=== PATIENT | male | born 1945 | race Caucasian/White ===

== ENCOUNTER 2018-04-22 10:43 | Inpatient (IN) | payer MEDICARE, SELFPAY ==
[2018-04-22] VITALS (20 sets, daily range): BP systolic 114–152; BP diastolic 72–102; PULSE 87–110; RESP 21–30; TEMP 36–36.8; O2SAT 87–99; BMI 29.5; BMI 31.6
--- NOTE | 2018-04-22 11:02 | EKG12_ITS ---
Test Reason : SOB Blood Pressure : / mmHG Vent. Rate : 106 BPM Atrial Rate : 106 BPM P-R Int : 190 ms QRS Dur : 100 ms QT Int : 352 ms P-R-T Axes : 048 131 -56 degrees QTc Int : 467 ms Sinus tachycardia Right axis deviation ST & T wave abnormality, consider inferior ischemia ST & T wave abnormality, consider anterior ischemia Abnormal ECG Confirmed by REID ORTEGA MD ([id number]), associate editor LIDIA RICE ([id number] on 04/24/2018 11:14:27 AM Referred By: MIKEY Confirmed By:REID ORTEGA MD
--- NOTE | 2018-04-22 11:09 | ED.VISSUMM ---
- ER Visit Summary Date of Service: 04/22/18 Chief Complaint: Shortness of breath History of Present Illness: The patient is a 72 M presents to the emergency department shortness of breath. The patient denies any significant medical history. He states that he was recently diagnosed with hypertension and started on medications. He states over the past month and a half, has had worsening dyspnea. He admits to increasing leg swelling, orthopnea, and dyspnea on exertion. He states never had this before. He denies any fevers or chills. He denies any cough. He has had no chest pain. He states that he just felt much worse over the past few days and feels like he cannot catch his breath. Physical Examination: Vital signs reviewed General: Well-nourished, well-developed Head: Normocephalic, atraumatic Eyes: Pupils equal and reactive, extraocular muscles intact Neck, supple, no lymphadenopathy Heart: Regular rate and rhythm Respiratory: No distress, rales in bilateral bases Abdomen: Soft, nontender, nondistended, no peritoneal signs Back: Nontender Extremities: Nontender, 2+ edema, no cords Skin: Normal color no rash Neuro: Alert and oriented, no focal or lateralizing deficits Test Results: [] Emergency Department Course and Treatment: The patient presents to the emergency department with exertional dyspnea. He was hypoxic on arrival. He does have bilateral leg edema. Initially, I was concerned for new onset CHF or volume overload. He did have some slight rales on auscultation, but there was no significant change in the bases. EKG was obtained. It does show evidence of right ventricular strain. He has poor R wave progression across the precordium. He also has T wave inversions inferiorly. The chest x-ray was clear. With this, I was significantly concerned for pulmonary embolus. Patient's troponin was indeterminate at 0.066. He also had an elevation of his BNP. Patient underwent CTA of the chest which shows large bilateral pulmonary emboli. There was no saddle pulmonary emboli. However, given the fact that he has evidence of right ventricular strain, indeterminate troponin, is hypoxic and tachycardic I do feel that he is going to require ICU admission. The patient was discussed with Dr. Deal and Dr. Funez. He is started on heparin drip. He will be admitted to the ICU for further workup and evaluation of his bilateral PEs. Treatment Plan: [] Disposition: Admission Impression: 1. Submassive bilateral pulmonary embolus 2. Hypoxia requiring supplemental oxygen 3. Tachycardia 4. Right ventricular strain This note was generated with [employer] dictation software. It may contain incorrect words, spelling, and punctuation that were not noted in review of the chart prior to signing ED Disposition - Plan for ED Patient: Chief Complaint: Shortness of Breath
--- NOTE | 2018-04-22 11:10 | RAD_ITS ---
STUDY: X-RAY CHEST REASON FOR EXAM: Male, 72 years old. Shortness of breath. Difficulty breathing. TECHNIQUE: Single AP portable view of the chest. COMPARISON: None. FINDINGS: EKG electrodes are seen. The lungs are clear and expanded. There is no demonstrated pleural abnormality. There is borderline cardiomegaly. Normal mediastinum and jud. Normal visualized pulmonary arteries. Normal visualized aortic arch and descending thoracic aorta. There are diffuse degenerative changes of the visualized thoracic spine. Normal visualized ribs, clavicles, and shoulders. There is no demonstrated abnormality of the visualized soft tissue structures of the upper abdomen. RAD/Chest 1 View (Portable) IMPRESSION: Borderline cardiomegaly. No acute abnormality is seen. Electronically Signed: Alex Gan MD at 11:22 EST Tel [phone], Service support ,
[2018-04-22] MEDS: Aspirin 81 MG TAB.CHEW 324 MG PO (11:13)
[2018-04-22 11:29] LABS: Absolute Lymphocyte Count 2.22 X10^3/ul (0.83-4.51); Absolute Neutrophil Count 10.6 X10^3/uL (2.0-7.7); Basophil# 0.03 X10^3/uL; Basophil% 0.2 % (0-1); Eosinophil# 0.13 X10^3/uL; Eosinophils% 0.9 % (0-5); Hematocrit 50.8 % (40-54); Hemoglobin 16.6 g/dl (13.0-16.5); Lymphocyte # 2.22 X10^3/ul (4.0); Lymphocyte % 16.1 % (19-41); Mean Corp Hgb Conc 32.7 g/gl (32-36); Mean Corpuscular Hgb 31.1 pg (27.0-32.0); Mean Corpuscular Volume 95.3 fL (80-94); Mean Platelet Vol. 10.1 fl (6.2-12.0); Monocyte# 0.81 X10^3/uL; Monocyte% 5.9 % (0-10); Neutrophil % 76.6 % (47-70); Platelet Count 178 K/mm3 (150-450); RBC Distribution Width CV 13.7 % (11.6-14.6); RBC Distribution Width SD 47.4 fl (35.1-43.9); Red Blood Count 5.33 M/mm3 (4.6-6.2); White Blood Count 13.8 K/mm3 (4.4-11.0)
[2018-04-22 11:30] LABS: POSITIVE COUNT NO; POSITIVE DIFFERENTIAL NO; POSITIVE MORPHOLOGY NO
--- NOTE | 2018-04-22 11:33 | CT_ITS ---
STUDY: CTA CHEST/THORAX REASON FOR EXAM: Male, 72 years old. Shortness of breath. RADIATION DOSAGE (If Supplied By Facility): CTDIvol = ( 22.96 ) mGy, DLP = ( 745.27 ) mGycm TECHNIQUE: The examination was performed with the intravenous administration of 100 ml of Isovue 370 contrast material. Post-processing of the angiographic images was performed, with multiplanar reformation and 3D reconstruction. Individualized dose optimization techniques were used for this CT. COMPARISON: Portable AP upright chest x-ray 1107 hours. FINDINGS: Normal enhancement of the main pulmonary artery and right and left pulmonary arteries. There are moderately occlusive filling defects consistent with acute pulmonary emboli in the hilar portions of the bilateral pulmonary arteries, extending into the adjacent central segmental branches There is early atherosclerotic calcification of the posterior aortic arch. There is no demonstrated aortic dissection. The heart size is upper normal to borderline enlarged. There are calcifications of the coronary arteries. Normal mediastinum. Normal hilar regions. Normal visualized trachea and bronchi. The lungs are well expanded. There is ill-defined perihilar central left upper lobe density that may be atelectasis, inflammation, or hemorrhage. Normal pleura. Normal chest wall structures. There are multilevel spondylotic degenerative changes of the thoracic spine. There is symmetric borderline fullness of the bilateral adrenal glands. 9 mm centrally calcified stone seen at the neck of the gallbladder. There is no apparent mural thickening of the gallbladder nor pericholecystic fluid to indicate acute cholecystitis. CT/CTA Chest W/WO Contrast IMPRESSION: 1. Bilateral pulmonary emboli. 2. Heart size upper normal to borderline enlarged. There are coronary artery atherosclerotic calcifications. 3. Ill-defined airspace disease in the central perihilar left upper lobe. 4. Symmetric borderline fullness-hypertrophy of the bilateral adrenal glands. 5. [address] signs of acute cholecystitis. N.B. : The above information has been verbally conveyed by Vitaly Mims MD to Richard Kwok MD, on 04/22/2018 13:16:27 (ET). Electronically Signed: Vitaly Mims MD at 13:22 EST , Service support ,
[2018-04-22 11:43] LABS: Anion Gap 10 (5-15); BUN 21 mg/dL (7-18); BUN/Creat Ratio 17.4 RATIO (10-20); Calcium,Total 8.7 mg/dL (8.5-10.1); Chloride 106 mmol/L (98-107); Creatinine, Serum 1.21 mg/dL (0.70-1.30); EST Glomerular Filtration Rate 63 mL/min (>60); Est Glom Filt Rate - Afr Amer 76 mL/min (>60); Glucose 206 mg/dL (74-106); Potassium 4.4 mmol/L (3.5-5.1); Sodium Level 138 mmol/L (136-145)
[2018-04-22 11:56] LABS: BNP,B-Type NATRIURETIC PEPTIDE 547.1 pg/mL (0-100)
--- NOTE | 2018-04-22 13:17 | PCM.HP.STD ---
Problem List (1) Bilateral pulmonary embolism Status: Acute (2) Hypertension Status: Chronic (3) Acute respiratory failure with hypoxia Status: Acute History of Present Illness Date of Admission: 04/22/18 Chief Complaint: Shortness of breath for about 1 and half months The patient is a 72 year old M with history of hypertension but no cardiopulmonary disease or thromboembolic disease came to ER with progressive worsening of shortness of breath on and off for 11/2 months. As per patient, initially shortness of breath got better but never resolved but for last 2 days it got progressively worse so that he could not walk or climb stairs or laying flat. Significant dyspnea on exertion, orthopnea but denies PND. No chest pain/chest pressure. Patient is still short of breath, sitting upright. ED vitals shows sinus tachycardia, heart rate 110/min, respiratory rate 28/min, pulse ox 87% on room air and 96% on oxygen 2.5 L/min In ED, chest x-ray was done which shows no acute abnormality. EKG showed sinus tachycardia at 106 bpm, right axis deviation with T inversion in anterior and lead III and aVF. Troponin and BNP elevated suggestive of right ventricular strain. CTPA showed bilateral pulmonary artery emboli although it is not saddle embolus. Patient is further admitted in ICU Past Medical History Past Medical History (Chronic Problems): Chronic Problems Hypertension (Chronic) Allergies No Known Allergies Allergy (Verified 04/22/18 10:45) Home Medications: Ambulatory Orders Medication Instructions Recorded Amlodipine [Norvasc] 10 mg PO DAILY 04/22/18 Lisinopril [Zestril] 5 mg PO DAILY 04/22/18 Smoking Status: Former smoker - *Family History Paternal History Items: Heart Disease Review of Systems Constitutional: Denies: Chills, Fever, Weight Change HEENT: Denies: Head Aches, Sinus Congestion, Sinus Drainage Cardiovascular: Reports: Edema, Orthopnea. Denies: Chest Pain, Chest Pressure, Chest Tightness, Palpitations, Paroxysmal Noc. Dyspnea Respiratory: Reports: Shortness of Breath, Shortness of breath at rest, Shortness of breath upon exertion. Denies: Cough, Sputum production Gastrointestinal: Denies: Abdominal Pain, Nausea, Vomiting Genitourinary: Denies: Dysuria Musculoskeletal: Denies: Joint Pain, Joint Tenderness Skin: Reports: Rash - Small purple venous discoloration over anterior medial side of right thigh. Denies: Wounds Neurological: Denies: Numbness, Tingling, Focal weakness Psychiatric: Denies: Anxiety, Depression, Homicidal Ideations, Suicidal Ideations Hematologic/ Lymphatic: Denies: Easy Bruising, Easy Bleeding VTE Information - Inpt Only VTE Present on Admission: Yes VTE Mechan Device Prophylaxis: None VTE Pharm Prophylaxis ordered?: No Reason prophylaxis not ordered:: Procedure Not Indicated - On therapeutic Lovenox Patient Problems: Active and Suspected Problems Bilateral pulmonary embolism (Acute) Acute respiratory failure with hypoxia (Acute) - Physical Exam General: Alert, Oriented x3, Cooperative HEENT: Atraumatic, PERRLA, EOMI, Normocephalic Oral: Dry Mucosa Neck: Supple, No JVD, Negative Carotid Bruits Lungs: Clear to auscultation, No rhonchi, No wheeze, No rales, Diminished - Bilateral lower lung base Cardiovascular: Regular rate, Regular Rhythm, Normal S1, Normal S2, No murmurs, - - P2 loud Abdomen: Bowel Sounds Present, Soft, Non Tender, Non-Distended Extremities: Capillary Refill Less than 3 Seconds, Edema - Right lower leg edema Skin: No rashes, No breakdown Musculoskeletal: No Tenderness to Palpation of Joints or Extremities Neurological: Cranial nerves II-XII grossly intact, Deep Tendon Reflexes 2+/4 and Symmetrical, Neuro grossly intact, Motor Exam 5/5 strength throughout Psych/Mental Status: Normal Affect, Appropriate Vital Signs Temp Pulse Resp BP Pulse Ox 96.8 F L 110 H 28 H 147/81 H 96 04/22/18 10:44 04/22/18 10:44 04/22/18 10:44 04/22/18 10:44 04/22/18 11:12 Oxygen Flow Rate (L/min) 2.5 Oxygen Delivery Method Nasal Cannula Weight: 200 lb Body Mass Index (BMI) 29.5 Laboratory Tests Past 24 Hrs 04/22/18 04/22/18 04/22/18 11:20 11:20 11:20 WBC 13.8 H RBC 5.33 Hgb 16.6 H Hct 50.8 MCV 95.3 H MCH 31.1 MCHC 32.7 RDW 13.7 RDW Differential 47.4 H Plt Count 178 MPV 10.1 Immature Gran % (Auto) 0.300 Neut % (Auto) 76.6 H Lymph % (Auto) 16.1 L Wilkin % (Auto) 5.9 Eos % (Auto) 0.9 Baso % (Auto) 0.2 Absolute Neuts (auto) 10.6 H Absolute Lymphs (auto) 2.22 Total Counted Not Reportable Protein C Antigen Prot C Funct Activity Antithrombin III Ag Func Antithrombin III Factor V Leiden Mutat Sodium 138 Potassium 4.4 Chloride 106 Carbon Dioxide 22.0 Anion Gap 10 BUN 21 H Creatinine 1.21 Estim Creat Clear Calc 56.00 Est GFR (MDRD) Af Amer 76 Est GFR (MDRD) Non-Af 63 BUN/Creatinine Ratio 17.4 Glucose 206 H Calcium 8.7 Troponin I 0.066 H B-Natriuretic Peptide 547.1 H Beta-2-GPI IgG Ab Beta-2-GPI IgA Ab Beta-2-GPI IgM Ab Anti-Cardiolipin IgG Ab Anti-Cardiolipin IgM Ab Factor II DNA Analysis Miscellaneous Test 04/22/18 04/22/18 13:06 13:06 WBC RBC Hgb Hct MCV MCH MCHC RDW RDW Differential Plt Count MPV Immature Gran % (Auto) Neut % (Auto) Lymph % (Auto) Wilkin % (Auto) Eos % (Auto) Baso % (Auto) Absolute Neuts (auto) Absolute Lymphs (auto) Total Counted Protein C Antigen Pending Prot C Funct Activity Pending Antithrombin III Ag Pending Func Antithrombin III Pending Factor V Leiden Mutat Pending Sodium Potassium Chloride Carbon Dioxide Anion Gap BUN Creatinine Estim Creat Clear Calc Est GFR (MDRD) Af Amer Est GFR (MDRD) Non-Af BUN/Creatinine Ratio Glucose Calcium Troponin I B-Natriuretic Peptide Beta-2-GPI IgG Ab Pending Beta-2-GPI IgA Ab Pending Beta-2-GPI IgM Ab Pending Anti-Cardiolipin IgG Ab Pending Anti-Cardiolipin IgM Ab Pending Factor II DNA Analysis Pending Miscellaneous Test Pending Assessment/Plan All Active Problems Bilateral pulmonary embolism (Acute) Acute respiratory failure with hypoxia (Acute) The patient is a 72 year old M with history of hypertension but no cardiopulmonary disease or thromboembolic disease came to ER with progressive worsening of shortness of breath on and off for 11/2 months. As per patient, initially shortness of breath got better but never resolved but for last 2 days it got progressively worse so that he could not walk or climb stairs or laying flat. Significant dyspnea on exertion, orthopnea but denies PND. No chest pain/chest pressure. Patient is still short of breath, sitting upright. ED vitals shows sinus tachycardia, heart rate 110/min, respiratory rate 28/min, pulse ox 87% on room air and 96% on oxygen 2.5 L/min In ED, chest x-ray was done which shows no acute abnormality. EKG showed sinus tachycardia at 106 bpm, right axis deviation with T inversion in anterior and lead III and aVF. Troponin and BNP elevated suggestive of right ventricular strain. CTPA showed bilateral pulmonary artery emboli although it is not saddle embolus. 1. Bilateral large pulmonary emboli causing right ventricular strain: Patient is being admitted in ICU. Started on Lovenox 1 mg/kg body weight. Currently blood pressure is stable. Monitor serial cardiac enzymes. [employer] Supervisor is being consulted. Hypercoagulable labs have been ordered prior to the start of antithrombotic. 2D echo ordered. Bilateral lower extremity venous Doppler ordered. CBC and BMP tomorrow a.m. 2. Acute hypoxic respiratory failure secondary to bilateral large PE: Oxygen therapy to keep pulse ox 90%. 3. Hypertension: Continue home medication of amlodipine and lisinopril. Laboratory Results 04/22/18 11:20: WBC 13.8 H, RBC 5.33, Hgb 16.6 H, Hct 50.8, MCV 95.3 H, MCH 31.1, MCHC 32.7, RDW 13.7, RDW Differential 47.4 H, Plt Count 178, MPV 10.1, Immature Gran % (Auto) 0.300, Neut % (Auto) 76.6 H, Lymph % (Auto) 16.1 L, Wilkin % (Auto) 5.9, Eos % (Auto) 0.9, Baso % (Auto) 0.2, Absolute Neuts (auto) 10.6 H, Absolute Lymphs (auto) 2.22, Total Counted Not Reportable 04/22/18 11:20: Sodium 138, Potassium 4.4, Chloride 106, Carbon Dioxide 22.0, Anion Gap 10, BUN 21 H, Creatinine 1.21, Estim Creat Clear Calc 56.00, Est GFR (MDRD) Af Amer 76, Est GFR (MDRD) Non-Af 63, BUN/Creatinine Ratio 17.4, Glucose 206 H, Calcium 8.7, Troponin I 0.066 H 04/22/18 11:20: B-Natriuretic Peptide 547.1 H 04/22/18 13:06: Miscellaneous Test Pending 04/22/18 13:06: Protein C Antigen Pending, Prot C Funct Activity Pending, Antithrombin III Ag Pending, Func Antithrombin III Pending, Factor V Leiden Mutat Pending, Beta-2-GPI IgG Ab Pending, Beta-2-GPI IgA Ab Pending, Beta-2-GPI IgM Ab Pending, Anti-Cardiolipin IgG Ab Pending, Anti-Cardiolipin IgM Ab Pending, Factor II DNA Analysis Pending Clinical Impression(s) from Imaging Studies Chest X-Ray 04/22/18 11:10 IMPRESSION: Borderline cardiomegaly. No acute abnormality is seen. Electronically Signed: Alex Gan MD at 11:22 EST Tel [phone], Service support , Chest CTA 04/22/18 11:33 IMPRESSION: 1. Bilateral pulmonary emboli. 2. Heart size upper normal to borderline enlarged. There are coronary artery atherosclerotic calcifications. 3. Ill-defined airspace disease in the central perihilar left upper lobe. 4. Symmetric borderline fullness-hypertrophy of the bilateral adrenal glands. 5. [address] signs of acute cholecystitis. N.B. : The above information has been verbally conveyed by Vitaly Mims MD to Richard Kwok MD, on 04/22/2018 13:16:27 (ET). Code Visit Inpatient E&M: 73583 Init Hosp L3
[2018-04-22] MEDS: Heparin Injection (Vial) 5,000 UNIT/ML VIAL 4000 UNIT IV (13:29)
[2018-04-22] MEDS: HEPARIN/D5w 25,000 UNITS 25,000 UNITS/250 ML IV.SOLN. 10 UNITS IV (13:33)
--- NOTE | 2018-04-22 14:13 | VDLE_ITS ---
Reason For Study: Pulmonary Embolism RIGHT LEFT GSV is normal. GSV is normal. CFV is compressible, spontaneous, competent CFV is compressible, spontaneous, competent, and demonstrates pulsatile venous flow. and demonstrates pulsatile venous flow. FV is compressible, spontaneous, competent FV is compressible, spontaneous, competent and demonstrates pulsatile venous flow. and demonstrates pulsatile venous flow. Acute deep vein thrombosis is noted in the POP V is compressible, spontaneous, competent right popliteal vein. and demonstrates pulsatile venous flow. Acute deep vein thrombosis is noted in the LT PerV is compressible. right peroneal vein. Acute deep vein thrombosis is noted in the Acute deep vein thrombosis is noted in the left posterior tibial vein. right posterior tibial vein. Acute deep vein thrombosis is noted in the Acute deep vein thrombosis is noted in the left gastroc vein. right gastroc vein. Procedure Exam performed portable in patient room. A preliminary report was called and/or faxed to ICU Nurse. <> Interpretation Summary Acute deep venous thrombosis right popliteal, peroneal, posterior tibial and gastrocnemius veins. Acute deep venous thrombosis left posterior tibial and gastrocnemius veins. Pulsitile venous flow noted bilaterally suspicious for proximal venous hypertension--clinical correlation would be appropriated. Patent and compressible bilateral great saphenous veins. Ordering Physician: Eleazar Funez Performed By: Estella Brandt RVT and Student
--- NOTE | 2018-04-22 14:13 | ECHOD_ITS ---
Reason For Study: PE Procedure This was a 2D Doppler, Color Flow transthoracic echocardiogram. Exam performed portable in ICU/CCU. Left Ventricle Normal LV size. D shaped septum in systole and diastole. Left ventricular systolic function is normal. Septal bounce. The estimated ejection fraction is 55 %. No regional wall motion abnormalities noted. Right Ventricle Severely dilated right ventricle. Moderate global right ventricular systolic dysfunction. Atria Normal left atrium. The right atrium is mildly enlarged. Mitral Valve Normal mitral valve. Mild (1+) eccentric mitral valve insufficiency. Tricuspid Valve Normal tricuspid valve. Severe (4+) tricuspid valve insufficiency. Pulmonary artery systolic pressure is 78 mmHg. Severe pulmonary hypertension. Aortic Valve Trisinus/trileaflet aortic valve. Pulmonic Valve Normal pulmonic valve. Great Vessels Normal aortic root. The pulmonary artery is normal size. Normal inferior vena cava. Pericardium/Pleural No pericardial effusion. Medication Definity deferred due to elevated PAP. MMode/2D Measurements & Calculations LVIDd: 3.4 cm IVSd: 1.8 cm Ao root diam: 3.6 cm LVIDs: 2.2 cm LVPWd: 1.7 cm RVDd: 5.6 cm FS: 35.5 % LAV(MOD-bp): 29.7 ml LA A4 area: 14.0 cm2 LA dimension(2D): 3.8 cm LAV(MOD-bp) Indexed: 14.0 ml/m2 LAV(MOD-sp2): 26.8 ml LAV(MOD-sp4): 32.6 ml RA A4 area: 21.5 cm2 Time Measurements MV dec time: 0.43 sec Doppler Measurements & Calculations MV E max breezy: 30.6 cm/sec Lat Peak E' Breezy: 8.8 cm/sec Med Peak E' Breezy: 3.7 cm/sec MV A max breezy: 73.7 cm/sec E/E' lat: 3.5 E/E' med: 8.3 MV E/A: 0.42 Ao V2 max: 112.9 cm/sec LV V1 max: 97.5 cm/sec PA V2 max: 38.9 cm/sec Ao max P.1 mmHg LV V1 max P.8 mmHg TR max breezy: 428.9 cm/sec TR max P.9 mmHg Interpretation Summary Normal LV size. D shaped septum in systole and diastole. Left ventricular systolic function is normal. The estimated ejection fraction is 55 %. Pulmonary artery systolic pressure is 78 mmHg. Severe pulmonary hypertension. Ordering Physician: Eleazar Funez Performed By: Noemy Nino RDCS, RVT
--- NOTE | 2018-04-22 14:17 | PCM.CON.CC ---
Reason for Consult Date of Consultation: 04/22/18 Reason for Consultation: Submassive PE History of Present Illness: The patient is a 72-year-old male, with a history as outlined below, who presented to the emergency department on April 22 with complaints of gradually worsening shortness of breath over 4-6 weeks along with lower extremity edema. The patient has a remote smoking history and currently utilizes smokeless tobacco. He also reports a history of melanoma, which was surgically resected through the [facility] 1 year ago. He denies any recent prolonged traveling or recent immobility. He denies a personal history of venous thromboembolic disease. The patient has no previous medical history, with the exception of hypertension. On presentation to the emergency department, the patient was noted to be afebrile, tachycardic, tachypneic and hypoxic. Laboratory evaluation revealed a mildly elevated white blood cell count to 14,000. Chemistry profile was largely unrevealing. Troponin was increased to 0.066 with an elevated BNP to 547. A CTA chest was obtained which revealed evidence of bilateral pulmonary emboli. The patient was subsequently started on a heparin drip and transferred to the medical intensive care unit for ongoing management. Past Medical History Past Medical History (Chronic Problems): Chronic Problems Hypertension (Chronic) Allergies No Known Allergies Allergy (Verified 04/22/18 10:45) Home Medications: Ambulatory Orders Medication Instructions Recorded Amlodipine [Norvasc] 10 mg PO DAILY 04/22/18 Aspirin [Aspirin, Baby] 81 mg PO QHS 04/22/18 Lisinopril [Zestril] 5 mg PO DAILY 04/22/18 Smoking Status: Former smoker - *Family History Paternal History Items: Heart Disease Review of Systems Constitutional: Denies: Chills, Fever Eyes: Denies: Blurred vision, Double vision HEENT: Denies: Head Aches, Sinus Congestion, Sinus Drainage Cardiovascular: Reports: Edema, Palpitations Respiratory: Reports: Shortness of Breath Gastrointestinal: Denies: Abdominal Pain, Nausea, Vomiting Genitourinary: Denies: Dysuria Musculoskeletal: Denies: Joint Pain, Joint Tenderness Skin: Denies: Rash, Wounds Neurological: Denies: Numbness, Tingling, Focal weakness Psychiatric: Denies: Anxiety, Depression, Homicidal Ideations, Suicidal Ideations Hematologic/ Lymphatic: Denies: Hx of blood clot Patient Problems: Active and Suspected Problems Bilateral pulmonary embolism (Acute) Acute respiratory failure with hypoxia (Acute) Objective: The patient's most recent lab work, culture data and imaging studies have all been personally reviewed. - Physical Exam General: Alert, Oriented x3, Cooperative, No apparent distress HEENT: Atraumatic, PERRLA, Normocephalic Oral: No Gingival or Mucosal Lesions/ Ulcerations Neck: Supple, No Nodes, Trachea Midline Lungs: Normal air movement, No rhonchi, No wheeze, No rales, Tachypneic Cardiovascular: Normal S1, Normal S2, No murmurs, Tachycardic Abdomen: Bowel Sounds Present, Soft, Non Tender, Obese Extremities: No clubbing, No cyanosis, Edema Skin: No breakdown Musculoskeletal: No Tenderness to Palpation of Joints or Extremities, No Muscle Wasting Lymphatic: No Cervical, Supraclavicular, or Inguinal Adenopathy Neurological: Cranial nerves II-XII grossly intact, Neuro grossly intact Psych/Mental Status: Alert and oriented to time, place, person, mood and affect Vital Signs Temp Pulse Resp BP Pulse Ox 36.0 C L 99 21 H 148/102 H 93 04/22/18 10:44 04/22/18 13:46 04/22/18 13:46 04/22/18 13:46 04/22/18 13:46 Oxygen Flow Rate (L/min) 2.5 Oxygen Delivery Method Nasal Cannula Weight: 200 lb Body Mass Index (BMI) 29.5 Laboratory Tests Past 24 Hrs 04/22/18 04/22/18 04/22/18 11:20 11:20 11:20 WBC 13.8 H RBC 5.33 Hgb 16.6 H Hct 50.8 MCV 95.3 H MCH 31.1 MCHC 32.7 RDW 13.7 RDW Differential 47.4 H Plt Count 178 MPV 10.1 Immature Gran % (Auto) 0.300 Neut % (Auto) 76.6 H Lymph % (Auto) 16.1 L [place] % (Auto) 5.9 Eos % (Auto) 0.9 Baso % (Auto) 0.2 Absolute Neuts (auto) 10.6 H Absolute Lymphs (auto) 2.22 Total Counted Not Reportable Protein C Antigen Prot C Funct Activity Antithrombin III Ag Func Antithrombin III Factor V Leiden Mutat Sodium 138 Potassium 4.4 Chloride 106 Carbon Dioxide 22.0 Anion Gap 10 BUN 21 H Creatinine 1.21 Estim Creat Clear Calc 56.00 Est GFR (MDRD) Af Amer 76 Est GFR (MDRD) Non-Af 63 BUN/Creatinine Ratio 17.4 Glucose 206 H Calcium 8.7 Troponin I 0.066 H B-Natriuretic Peptide 547.1 H Beta-2-GPI IgG Ab Beta-2-GPI IgA Ab Beta-2-GPI IgM Ab Anti-Cardiolipin IgG Ab Anti-Cardiolipin IgM Ab Factor II DNA Analysis Miscellaneous Test 04/22/18 04/22/18 13:06 13:06 WBC RBC Hgb Hct MCV MCH MCHC RDW RDW Differential Plt Count MPV Immature Gran % (Auto) Neut % (Auto) Lymph % (Auto) [place] % (Auto) Eos % (Auto) Baso % (Auto) Absolute Neuts (auto) Absolute Lymphs (auto) Total Counted Protein C Antigen Pending Prot C Funct Activity Pending Antithrombin III Ag Pending Func Antithrombin III Pending Factor V Leiden Mutat Pending Sodium Potassium Chloride Carbon Dioxide Anion Gap BUN Creatinine Estim Creat Clear Calc Est GFR (MDRD) Af Amer Est GFR (MDRD) Non-Af BUN/Creatinine Ratio Glucose Calcium Troponin I B-Natriuretic Peptide Beta-2-GPI IgG Ab Pending Beta-2-GPI IgA Ab Pending Beta-2-GPI IgM Ab Pending Anti-Cardiolipin IgG Ab Pending Anti-Cardiolipin IgM Ab Pending Factor II DNA Analysis Pending Miscellaneous Test Pending Clinical Impression(s) from Imaging Studies Chest X-Ray 04/22/18 11:10 IMPRESSION: Borderline cardiomegaly. No acute abnormality is seen. Electronically Signed: Alex Gan MD at 11:22 EST Tel [phone], Service support , Chest CTA 04/22/18 11:33 IMPRESSION: 1. Bilateral pulmonary emboli. 2. Heart size upper normal to borderline enlarged. There are coronary artery atherosclerotic calcifications. 3. Ill-defined airspace disease in the central perihilar left upper lobe. 4. Symmetric borderline fullness-hypertrophy of the bilateral adrenal glands. 5. [address] signs of acute cholecystitis. N.B. : The above information has been verbally conveyed by Vitaly Mims MD to Richard Kwok MD, on 04/22/2018 13:16:27 (ET). Electronically Signed: Vitaly Mims MD at 13:22 EST , Service support , Assessment/Plan Active and Suspected Problems Bilateral pulmonary embolism (Acute) Acute respiratory failure with hypoxia (Acute) RECOMMENDATIONS: 1. Continue treatment dose Lovenox as ordered. 2. Surface echocardiogram is currently pending. 3. Okay to discontinue trending troponins. 4. Cancel lower extremity Dopplers, as this would not change our management of this patient. 5. Wean supplemental oxygen as tolerated. IMPRESSIONS: 1. Submassive PE The patient presented to the hospital with worsening shortness of breath and lower extremity edema and was subsequently found to have extensive bilateral pulmonary emboli along with biochemical evidence of cardiac dysfunction including elevated troponin and BNP, suggestive of submassive pulmonary embolism. The patient remained hemodynamically stable, nonetheless. A follow-up echocardiogram is currently pending. I see no indication to obtain lower extremity Dopplers as ordered. This would not change our management in any way. I would, however, obtain records from the [facility] regarding the patient's melanoma history, as this may need to be followed up upon. Continue to wean supplemental oxygen to maintain saturations at or above 90%. The patient has been transition from a continuous heparin drip to Lovenox at this time. This will be continued without change. 2. Personal history of hypertension and smokeless tobacco use Complicates care, management, recovery and prognosis. Continue home medications as indicated. Complete tobacco cessation is strongly advised. This note was generated with [employer] software. It may contain incorrect words, spelling, and punctuation that were not noted in checking the note before signing. Code Visit Inpatient E&M: 39889 Init Hosp L3
--- NOTE | 2018-04-22 14:21 | CON.PCM_ITS ---
Reason for Consult Date of Consultation: 04/22/18 Reason for Consultation: Submassive PE History of Present Illness: The patient is a 72-year-old male, with a history as outlined below, who presented to the emergency department on April 22 with complaints of gradually worsening shortness of breath over 4-6 weeks along with lower extremity edema. The patient has a remote smoking history and currently utilizes smokeless tobacco. He also reports a history of melanoma, which was surgically resected through the [facility] 1 year ago. He denies any recent prolonged traveling or recent immobility. He denies a personal history of venous thromboembolic disease. The patient has no previous medical history, with the exception of hypertension. On presentation to the emergency department, the patient was noted to be afebrile, tachycardic, tachypneic and hypoxic. Laboratory evaluation revealed a mildly elevated white blood cell count to 14,000. Chemistry profile was largely unrevealing. Troponin was increased to 0.066 with an elevated BNP to 547. A CTA chest was obtained which revealed evidence of bilateral pulmonary emboli. The patient was subsequently started on a heparin drip and transferred to the medical intensive care unit for ongoing management. Past Medical History Past Medical History (Chronic Problems): Chronic Problems Hypertension (Chronic) Allergies No Known Allergies Allergy (Verified 04/22/18 10:45) Home Medications: Ambulatory Orders Medication Instructions Recorded Amlodipine [Norvasc] 10 mg PO DAILY 04/22/18 Aspirin [Aspirin, Baby] 81 mg PO QHS 04/22/18 Lisinopril [Zestril] 5 mg PO DAILY 04/22/18 Smoking Status: Former smoker - *Family History Paternal History Items: Heart Disease Review of Systems Constitutional: Denies: Chills, Fever Eyes: Denies: Blurred vision, Double vision HEENT: Denies: Head Aches, Sinus Congestion, Sinus Drainage Cardiovascular: Reports: Edema, Palpitations Respiratory: Reports: Shortness of Breath Gastrointestinal: Denies: Abdominal Pain, Nausea, Vomiting Genitourinary: Denies: Dysuria Musculoskeletal: Denies: Joint Pain, Joint Tenderness Skin: Denies: Rash, Wounds Neurological: Denies: Numbness, Tingling, Focal weakness Psychiatric: Denies: Anxiety, Depression, Homicidal Ideations, Suicidal Ideations Hematologic/ Lymphatic: Denies: Hx of blood clot Patient Problems: Active and Suspected Problems Bilateral pulmonary embolism (Acute) Acute respiratory failure with hypoxia (Acute) Objective: The patient's most recent lab work, culture data and imaging studies have all been personally reviewed. - Physical Exam General: Alert, Oriented x3, Cooperative, No apparent distress HEENT: Atraumatic, PERRLA, Normocephalic Oral: No Gingival or Mucosal Lesions/ Ulcerations Neck: Supple, No Nodes, Trachea Midline Lungs: Normal air movement, No rhonchi, No wheeze, No rales, Tachypneic Cardiovascular: Normal S1, Normal S2, No murmurs, Tachycardic Abdomen: Bowel Sounds Present, Soft, Non Tender, Obese Extremities: No clubbing, No cyanosis, Edema Skin: No breakdown Musculoskeletal: No Tenderness to Palpation of Joints or Extremities, No Muscle Wasting Lymphatic: No Cervical, Supraclavicular, or Inguinal Adenopathy Neurological: Cranial nerves II-XII grossly intact, Neuro grossly intact Psych/Mental Status: Alert and oriented to time, place, person, mood and affect Vital Signs Temp Pulse Resp BP Pulse Ox 36.0 C L 99 21 H 148/102 H 93 04/22/18 10:44 04/22/18 13:46 04/22/18 13:46 04/22/18 13:46 04/22/18 13:46 Oxygen Flow Rate (L/min) 2.5 Oxygen Delivery Method Nasal Cannula Weight: 200 lb Body Mass Index (BMI) 29.5 Laboratory Tests Past 24 Hrs 04/22/18 04/22/18 04/22/18 11:20 11:20 11:20 WBC 13.8 H RBC 5.33 Hgb 16.6 H Hct 50.8 MCV 95.3 H MCH 31.1 MCHC 32.7 RDW 13.7 RDW Differential 47.4 H Plt Count 178 MPV 10.1 Immature Gran % (Auto) 0.300 Neut % (Auto) 76.6 H Lymph % (Auto) 16.1 L [place] % (Auto) 5.9 Eos % (Auto) 0.9 Baso % (Auto) 0.2 Absolute Neuts (auto) 10.6 H Absolute Lymphs (auto) 2.22 Total Counted Not Reportable Protein C Antigen Prot C Funct Activity Antithrombin III Ag Func Antithrombin III Factor V Leiden Mutat Sodium 138 Potassium 4.4 Chloride 106 Carbon Dioxide 22.0 Anion Gap 10 BUN 21 H Creatinine 1.21 Estim Creat Clear Calc 56.00 Est GFR (MDRD) Af Amer 76 Est GFR (MDRD) Non-Af 63 BUN/Creatinine Ratio 17.4 Glucose 206 H Calcium 8.7 Troponin I 0.066 H B-Natriuretic Peptide 547.1 H Beta-2-GPI IgG Ab Beta-2-GPI IgA Ab Beta-2-GPI IgM Ab Anti-Cardiolipin IgG Ab Anti-Cardiolipin IgM Ab Factor II DNA Analysis Miscellaneous Test 04/22/18 04/22/18 13:06 13:06 WBC RBC Hgb Hct MCV MCH MCHC RDW RDW Differential Plt Count MPV Immature Gran % (Auto) Neut % (Auto) Lymph % (Auto) [place] % (Auto) Eos % (Auto) Baso % (Auto) Absolute Neuts (auto) Absolute Lymphs (auto) Total Counted Protein C Antigen Pending Prot C Funct Activity Pending Antithrombin III Ag Pending Func Antithrombin III Pending Factor V Leiden Mutat Pending Sodium Potassium Chloride Carbon Dioxide Anion Gap BUN Creatinine Estim Creat Clear Calc Est GFR (MDRD) Af Amer Est GFR (MDRD) Non-Af BUN/Creatinine Ratio Glucose Calcium Troponin I B-Natriuretic Peptide Beta-2-GPI IgG Ab Pending Beta-2-GPI IgA Ab Pending Beta-2-GPI IgM Ab Pending Anti-Cardiolipin IgG Ab Pending Anti-Cardiolipin IgM Ab Pending Factor II DNA Analysis Pending Miscellaneous Test Pending Clinical Impression(s) from Imaging Studies Chest X-Ray 04/22/18 11:10 IMPRESSION: Borderline cardiomegaly. No acute abnormality is seen. Electronically Signed: Alex Gan MD at 11:22 EST Tel [phone], Service support , Chest CTA 04/22/18 11:33 IMPRESSION: 1. Bilateral pulmonary emboli. 2. Heart size upper normal to borderline enlarged. There are coronary artery atherosclerotic calcifications. 3. Ill-defined airspace disease in the central perihilar left upper lobe. 4. Symmetric borderline fullness-hypertrophy of the bilateral adrenal glands. 5. [address] signs of acute cholecystitis. N.B. : The above information has been verbally conveyed by Vitaly Mims MD to Richard Kwok MD, on 04/22/2018 13:16:27 (ET). Electronically Signed: Vitaly Mims MD at 13:22 EST , Service support , Assessment/Plan Active and Suspected Problems Bilateral pulmonary embolism (Acute) Acute respiratory failure with hypoxia (Acute) RECOMMENDATIONS: 1. Continue treatment dose Lovenox as ordered. 2. Surface echocardiogram is currently pending. 3. Okay to discontinue trending troponins. 4. Cancel lower extremity Dopplers, as this would not change our management of this patient. 5. Wean supplemental oxygen as tolerated. IMPRESSIONS: 1. Submassive PE The patient presented to the hospital with worsening shortness of breath and lower extremity edema and was subsequently found to have extensive bilateral pulmonary emboli along with biochemical evidence of cardiac dysfunction including elevated troponin and BNP, suggestive of submassive pulmonary embolism. The patient remained hemodynamically stable, nonetheless. A follow- up echocardiogram is currently pending. I see no indication to obtain lower extremity Dopplers as ordered. This would not change our management in any way. I would, however, obtain records from the [facility] regarding the patient's melanoma history, as this may need to be followed up upon. Continue to wean supplemental oxygen to maintain saturations at or above 90%. The patient has been transition from a continuous heparin drip to Lovenox at this time. This will be continued without change. 2. Personal history of hypertension and smokeless tobacco use Complicates care, management, recovery and prognosis. Continue home medications as indicated. Complete tobacco cessation is strongly advised. This note was generated with [employer] software. It may contain incorrect words, spelling, and punctuation that were not noted in checking the note before signing. Code Visit Inpatient E&M: 59146 Init Hosp L3
[2018-04-22] MEDS: 0.9% Normal Saline 1,000 ML 75 ML IV (14:58)
[2018-04-22] MEDS: Enoxaparin 100 MG/ML Syringe 90 MG SC ×2 (15:01→21:09)
--- NOTE | 2018-04-22 15:54 | EKG12_ITS ---
Test Reason : PE Blood Pressure : / mmHG Vent. Rate : 093 BPM Atrial Rate : 093 BPM P-R Int : 164 ms QRS Dur : 096 ms QT Int : 382 ms P-R-T Axes : 046 112 -26 degrees QTc Int : 474 ms Normal sinus rhythm T wave abnormality, consider inferior ischemia T wave abnormality, consider anterolateral ischemia Prolonged QT Abnormal ECG No previous ECGs available Confirmed by SHANNON HOUSE, REID ([id number]), primer expeditor and drier LIDIA RICE ([id number] on 04/26/2018 2:04:17 PM Referred By: ROSALBA Confirmed By:REID ORTEGA MD
[2018-04-22] MEDS: BENZOCAINE/MENTHOL 1 LOZENGE 2 LOZENGE MUCOUS MEM (21:53)
[2018-04-23] VITALS (19 sets, daily range): BP systolic 124–145; BP diastolic 61–94; PULSE 78–98; RESP 18–24; TEMP 36.3–37; O2SAT 92–99
[2018-04-23] MEDS: 0.9% Normal Saline 1,000 ML 75 ML IV ×2 (02:53→16:46)
[2018-04-23] MEDS: BENZOCAINE/MENTHOL 1 LOZENGE 2 LOZENGE MUCOUS MEM (02:57)
[2018-04-23 04:19] LABS: Hematocrit 45.7 % (40-54); Hemoglobin 15.5 g/dl (13.0-16.5); Mean Corp Hgb Conc 33.9 g/gl (32-36); Mean Corpuscular Hgb 31.8 pg (27.0-32.0); Mean Corpuscular Volume 93.6 fL (80-94); Mean Platelet Vol. 9.8 fl (6.2-12.0); Platelet Count 182 K/mm3 (150-450); RBC Distribution Width CV 13.6 % (11.6-14.6); RBC Distribution Width SD 45.4 fl (35.1-43.9); Red Blood Count 4.88 M/mm3 (4.6-6.2); White Blood Count 10.5 K/mm3 (4.4-11.0)
[2018-04-23 04:26] LABS: Scan Indicated on CBC? Y/N NO
[2018-04-23 04:33] LABS: Anion Gap 11 (5-15); BUN 17 mg/dL (7-18); BUN/Creat Ratio 15.6 RATIO (10-20); Calcium,Total 8.2 mg/dL (8.5-10.1); Chloride 108 mmol/L (98-107); Creatinine, Serum 1.09 mg/dL (0.70-1.30); EST Glomerular Filtration Rate 71 mL/min (>60); Est Glom Filt Rate - Afr Amer 86 mL/min (>60); Estimated Creatinine Clearance 62.16 ml/min; Glucose 121 mg/dL (74-106); Potassium 4.3 mmol/L (3.5-5.1); Sodium Level 142 mmol/L (136-145)
--- NOTE | 2018-04-23 06:29 | PCM.PN.INT ---
Subjective: The patient was seen and examined at the bedside this morning. Events from the last 24 hours have been reviewed. The patient is currently afebrile, hemodynamically stable and maintaining appropriate oxygen saturations on 2 L/min via nasal cannula. No overnight issues were identified by the nursing staff. The patient continues to report shortness of breath this morning. Objective: The patient's most recent lab work, culture data and imaging studies have all been personally reviewed. Hypercoagulable panel is pending. Surface echocardiogram revealed a severely dilated RV with moderate global RV systolic dysfunction, severe tricuspid valve insufficiency and a pulmonary artery systolic pressure estimated to be 78 mmHg. General: Alert, Cooperative, No apparent distress HEENT: Atraumatic, PERRLA, Normocephalic Oral: No Gingival or Mucosal Lesions/ Ulcerations Neck: Supple, No Nodes, Trachea Midline Lungs: Normal air movement, No rhonchi, No wheeze, No rales Cardiovascular: Regular rate, Regular Rhythm, Normal S1, Normal S2, No murmurs Abdomen: Bowel Sounds Present, Soft, Non Tender, Obese Extremities: No clubbing, No cyanosis, No edema Skin: No breakdown Musculoskeletal: No Tenderness to Palpation of Joints or Extremities, No Muscle Wasting Lymphatic: No Cervical, Supraclavicular, or Inguinal Adenopathy Neurological: Cranial nerves II-XII grossly intact, Neuro grossly intact Psych/Mental Status: Normal Affect, Appropriate Vital Signs Temp Pulse Resp BP Pulse Ox 36.6 C 81 22 H 132/86 H 95 04/23/18 05:00 04/23/18 06:00 04/23/18 06:00 04/23/18 06:00 04/23/18 06:00 Oxygen Flow Rate (L/min) 2 Oxygen Delivery Method Nasal Cannula Weight: 216 lb 0.848 oz Body Mass Index (BMI) 31.6 Intake and Output for Last 24 Hours 04/21/18 04/22/18 04/23/18 23:59 23:59 23:59 Intake Total 1567 / 1567 1145 / 1145 Output Total 775 / 775 600 / 600 Balance 792 / 792 545 / 545 Labs (Last 48 Hours) 04/22/18 04/22/18 04/22/18 11:20 11:20 11:20 WBC 13.8 H RBC 5.33 Hgb 16.6 H Hct 50.8 MCV 95.3 H MCH 31.1 MCHC 32.7 RDW 13.7 RDW Differential 47.4 H Plt Count 178 MPV 10.1 Immature Gran % (Auto) 0.300 Neut % (Auto) 76.6 H Lymph % (Auto) 16.1 L Dickey % (Auto) 5.9 Eos % (Auto) 0.9 Baso % (Auto) 0.2 Absolute Neuts (auto) 10.6 H Absolute Lymphs (auto) 2.22 Total Counted Not Reportable Protein C Antigen Prot C Funct Activity Antithrombin III Ag Func Antithrombin III Factor V Leiden Mutat Sodium 138 Potassium 4.4 Chloride 106 Carbon Dioxide 22.0 Anion Gap 10 BUN 21 H Creatinine 1.21 Estim Creat Clear Calc 56.00 Est GFR (MDRD) Af Amer 76 Est GFR (MDRD) Non-Af 63 BUN/Creatinine Ratio 17.4 Glucose 206 H Calcium 8.7 Troponin I 0.066 H B-Natriuretic Peptide 547.1 H Beta-2-GPI IgG Ab Beta-2-GPI IgA Ab Beta-2-GPI IgM Ab Anti-Cardiolipin IgG Ab Anti-Cardiolipin IgM Ab Factor II DNA Analysis Miscellaneous Test 04/22/18 04/22/18 04/22/18 13:06 13:06 14:40 WBC RBC Hgb Hct MCV MCH MCHC RDW RDW Differential Plt Count MPV Immature Gran % (Auto) Neut % (Auto) Lymph % (Auto) Dickey % (Auto) Eos % (Auto) Baso % (Auto) Absolute Neuts (auto) Absolute Lymphs (auto) Total Counted Protein C Antigen Pending Prot C Funct Activity Pending Antithrombin III Ag Pending Func Antithrombin III Pending Factor V Leiden Mutat Pending Sodium Potassium Chloride Carbon Dioxide Anion Gap BUN Creatinine Estim Creat Clear Calc Est GFR (MDRD) Af Amer Est GFR (MDRD) Non-Af BUN/Creatinine Ratio Glucose Calcium Troponin I 0.122 H B-Natriuretic Peptide Beta-2-GPI IgG Ab Pending Beta-2-GPI IgA Ab Pending Beta-2-GPI IgM Ab Pending Anti-Cardiolipin IgG Ab Pending Anti-Cardiolipin IgM Ab Pending Factor II DNA Analysis Pending Miscellaneous Test Pending 04/23/18 04/23/18 04:05 04:05 WBC 10.5 RBC 4.88 Hgb 15.5 Hct 45.7 MCV 93.6 MCH 31.8 MCHC 33.9 RDW 13.6 RDW Differential 45.4 H Plt Count 182 MPV 9.8 Immature Gran % (Auto) Neut % (Auto) Lymph % (Auto) Dickey % (Auto) Eos % (Auto) Baso % (Auto) Absolute Neuts (auto) Absolute Lymphs (auto) Total Counted Protein C Antigen Prot C Funct Activity Antithrombin III Ag Func Antithrombin III Factor V Leiden Mutat Sodium 142 Potassium 4.3 Chloride 108 H Carbon Dioxide 23.0 Anion Gap 11 BUN 17 Creatinine 1.09 Estim Creat Clear Calc 62.16 Est GFR (MDRD) Af Amer 86 Est GFR (MDRD) Non-Af 71 BUN/Creatinine Ratio 15.6 Glucose 121 H Calcium 8.2 L Troponin I B-Natriuretic Peptide Beta-2-GPI IgG Ab Beta-2-GPI IgA Ab Beta-2-GPI IgM Ab Anti-Cardiolipin IgG Ab Anti-Cardiolipin IgM Ab Factor II DNA Analysis Miscellaneous Test Clinical Impression(s) from Imaging Studies Chest X-Ray 04/22/18 11:10 IMPRESSION: Borderline cardiomegaly. No acute abnormality is seen. Electronically Signed: Alex Gan MD at 11:22 EST Tel [phone], Service support , Chest CTA 04/22/18 11:33 IMPRESSION: 1. Bilateral pulmonary emboli. 2. Heart size upper normal to borderline enlarged. There are coronary artery atherosclerotic calcifications. 3. Ill-defined airspace disease in the central perihilar left upper lobe. 4. Symmetric borderline fullness-hypertrophy of the bilateral adrenal glands. 5. [address] signs of acute cholecystitis. N.B. : The above information has been verbally conveyed by Vitaly Mims MD to Richard Kwok MD, on 04/22/2018 13:16:27 (ET). Electronically Signed: Vitaly Mims MD at 13:22 EST , Service support , Medical Necessity - Tobacco Use Smoking Status: Former smoker Tobacco Use: Cigarettes Assessment/Plan All Active Problems Bilateral pulmonary embolism (Acute) Acute respiratory failure with hypoxia (Acute) RECOMMENDATIONS: 1. Continue treatment dose Lovenox as ordered. 2. Cancel lower extremity Dopplers, as this would not change our management of this patient. 3. Wean supplemental oxygen as tolerated. 4. Await hypercoagulable workup. 5. Perform walking oximetry study prior to consideration for discharge from the hospital. 6. The patient should follow-up in the pulmonary medicine clinic within 2 weeks of his discharge from the hospital. IMPRESSIONS: 1. Submassive PE The patient presented to the hospital with worsening shortness of breath and lower extremity edema and was subsequently found to have extensive bilateral pulmonary emboli along with biochemical evidence of cardiac dysfunction including elevated troponin and BNP, suggestive of submassive pulmonary embolism. The patient remained hemodynamically stable, nonetheless. A follow-up echocardiogram did reveal evidence of RV systolic dysfunction and a pulmonary artery systolic pressure of 78 mmHg. Although this would be in keeping with the patient's clinical presentation of submassive PE. The exact etiology for the patient's venous thromboembolic disease is a bit unclear. He does report a history of melanoma, which was surgically resected. However, the patient did not have any formal follow-up with regards to his skin cancer. If possible, obtain records from the [facility] regarding the patient's melanoma history, as this may need to be followed up upon. Continue to wean supplemental oxygen to maintain saturations at or above 90%. Continue Lovenox as ordered. Perform walking oximetry study prior to consideration for discharge from the hospital. 2. Personal history of hypertension and smokeless tobacco use Complicates care, management, recovery and prognosis. Continue home medications as indicated. Complete tobacco cessation is strongly advised. This note was generated with [employer] software. It may contain incorrect words, spelling, and punctuation that were not noted in checking the note before signing. Code Visit Inpatient E&M: 45137 [facility] Hosp L3
--- NOTE | 2018-04-23 08:00 | PCM.PN.HOSP ---
Patient Problems: Active and Suspected Problems Bilateral pulmonary embolism (Acute) Acute respiratory failure with hypoxia (Acute) Subjective: Patient shortness of breath is better as compared to yesterday. No shortness of breath at rest. Denies chest pain/pressure. 2D echo reviewed and discussed with the patient. Discussed with document specialist. Vitals/I&O's: Vital Signs Temp Pulse Resp BP Pulse Ox 97.8 F 78 20 H 132/86 H 97 04/23/18 05:00 04/23/18 07:00 04/23/18 07:00 04/23/18 06:00 04/23/18 07:46 Oxygen Flow Rate (L/min) 2 Oxygen Delivery Method Nasal Cannula Weight: 216 lb 0.848 oz Body Mass Index (BMI) 31.6 Intake and Output for Last 24 Hours 04/21/18 04/22/18 04/23/18 23:59 23:59 23:59 Intake Total 1567 / 1567 1145 / 1145 Output Total 775 / 775 600 / 600 Balance 792 / 792 545 / 545 General: Alert, Oriented x3, Cooperative HEENT: Atraumatic, PERRLA, EOMI, Normocephalic Neck: Supple, No JVD, Negative Carotid Bruits Lungs: No rhonchi, No wheeze, No rales, Diminished - Air entry diminished in bilateral lung bases Cardiovascular: Regular rate, Regular Rhythm, Normal S1, Normal S2, No murmurs Abdomen: Bowel Sounds Present, Soft, Non Tender, Non-Distended Extremities: No edema, Capillary Refill Less than 3 Seconds Skin: No rashes, No breakdown, - - Scar shaggy of her right lower arm of melanoma excision Musculoskeletal: No Tenderness to Palpation of Joints or Extremities, Arthritic Changes Neurological: Cranial nerves II-XII grossly intact Psych/Mental Status: Normal Affect, Appropriate Laboratory Results 04/22/18 11:20: WBC 13.8 H, RBC 5.33, Hgb 16.6 H, Hct 50.8, MCV 95.3 H, MCH 31.1, MCHC 32.7, RDW 13.7, RDW Differential 47.4 H, Plt Count 178, MPV 10.1, Immature Gran % (Auto) 0.300, Neut % (Auto) 76.6 H, Lymph % (Auto) 16.1 L, Granite % (Auto) 5.9, Eos % (Auto) 0.9, Baso % (Auto) 0.2, Absolute Neuts (auto) 10.6 H, Absolute Lymphs (auto) 2.22, Total Counted Not Reportable 04/22/18 11:20: Sodium 138, Potassium 4.4, Chloride 106, Carbon Dioxide 22.0, Anion Gap 10, BUN 21 H, Creatinine 1.21, Estim Creat Clear Calc 56.00, Est GFR (MDRD) Af Amer 76, Est GFR (MDRD) Non-Af 63, BUN/Creatinine Ratio 17.4, Glucose 206 H, Calcium 8.7, Troponin I 0.066 H 04/22/18 11:20: B-Natriuretic Peptide 547.1 H 04/22/18 13:06: Miscellaneous Test Pending 04/22/18 13:06: Protein C Antigen Pending, Prot C Funct Activity Pending, Antithrombin III Ag Pending, Func Antithrombin III Pending, Factor V Leiden Mutat Pending, Beta-2-GPI IgG Ab Pending, Beta-2-GPI IgA Ab Pending, Beta-2-GPI IgM Ab Pending, Anti-Cardiolipin IgG Ab Pending, Anti-Cardiolipin IgM Ab Pending, Factor II DNA Analysis Pending 04/22/18 14:40: Troponin I 0.122 H 04/23/18 04:05: WBC 10.5, RBC 4.88, Hgb 15.5, Hct 45.7, MCV 93.6, MCH 31.8, MCHC 33.9, RDW 13.6, RDW Differential 45.4 H, Plt Count 182, MPV 9.8 04/23/18 04:05: Sodium 142, Potassium 4.3, Chloride 108 H, Carbon Dioxide 23.0, Anion Gap 11, BUN 17, Creatinine 1.09, Estim Creat Clear Calc 62.16, Est GFR (MDRD) Af Amer 86, Est GFR (MDRD) Non-Af 71, BUN/Creatinine Ratio 15.6, Glucose 121 H, Calcium 8.2 L Current Medications Acetaminophen (Tylenol) 650 mg PO Q6H PRN PRN PRN Reason: Mild Pain (scale 0-3)/T>100.7 Al Hydroxide/Mg Hydroxide (Mylanta Ii) 30 ml PO Q6H PRN PRN PRN Reason: Gastric Burning Amlodipine Besylate (Norvasc) 10 mg PO DAILY [facility] Bisacodyl (Dulcolax) 10 mg RECTAL DAILY PRN PRN PRN Reason: Constipation Docusate Sodium (Colace) 200 mg PO BID PRN PRN PRN Reason: Constipation Enoxaparin Sodium (Lovenox) 90 mg 1 mg/kg (90 mg) SC Q12 [facility] Last Admin: 04/22/18 21:09 Dose: 90 mg Sodium Chloride () 1,000 mls @ 75 mls/hr IV .[id number] [facility] Last Admin: 04/23/18 02:53 Dose: 75 mls/hr Lisinopril (Zestril) 5 mg PO DAILY [facility] Morphine Sulfate () 2 - 4 mg IV Q3H PRN PRN PRN Reason: Severe Pain (pain scale 6-10) Morphine Sulfate () 2 - 4 mg IV Q3H PRN PRN PRN Reason: Severe Pain (pain scale 6-10) Ondansetron HCl (Zofran) 4 mg IV Q6H PRN PRN PRN Reason: Nausea Oxycodone HCl (Oxyir) 5 mg PO Q4H PRN PRN PRN Reason: Moderate Pain (pain scale 4-5) Polyethylene Glycol (Miralax) 17 gm PO DAILY [facility] Sodium Chloride () 5 - 30 ml IV UD PRN PRN Reason: SALINE FLUSH Throat Lozenges (Cepacol Sore Throat Lozenge) 2 lozenge MUCOUS MEM Q4H PRN PRN PRN Reason: SORE THROAT Last Admin: 04/23/18 02:57 Dose: 2 lozenge Zolpidem Tartrate (Ambien (Generic)) 5 mg PO QHS PRN PRN PRN Reason: INSOMNIA Medical Necessity - Tobacco Use Smoking Status: Former smoker Tobacco Use: Cigarettes Assessment/Plan All Active Problems Bilateral pulmonary embolism (Acute) Acute respiratory failure with hypoxia (Acute) The patient is a 72 year old M with history of hypertension but no cardiopulmonary disease or thromboembolic disease came to ER with progressive worsening of shortness of breath on and off for 11/2 months. As per patient, initially shortness of breath got better but never resolved but for last 2 days it got progressively worse so that he could not walk or climb stairs or laying flat. Significant dyspnea on exertion, orthopnea but denies PND. No chest pain/chest pressure. Patient is still short of breath, sitting upright. ED vitals shows sinus tachycardia, heart rate 110/min, respiratory rate 28/min, pulse ox 87% on room air and 96% on oxygen 2.5 L/min In ED, chest x-ray was done which shows no acute abnormality. EKG showed sinus tachycardia at 106 bpm, right axis deviation with T inversion in anterior and lead III and aVF. Troponin and BNP elevated suggestive of right ventricular strain. CTPA showed bilateral submassive pulmonary artery emboli although it is not saddle embolus. 1. Bilateral large, submassive pulmonary emboli causing right ventricular strain: Patient was admitted in ICU. Started on Lovenox 1 mg/kg body weight. Currently blood pressure is stable. Hypercoagulable labs have been ordered prior to the start of antithrombotic. Patient is transferred to PCU today. Discussed with document specialist. 2. Severe pulmonary artery hypertension with severe tricuspid regurgitation and severely dilated RV due to submassive PE: 2D echo was done and reviewed with the patient. Severely dilated RV with moderate global right ventricular systolic dysfunction. 4+ TR. RVSP 78 mmHg. Pulmonary artery is normal size with normal IVC. Interventricular septum is D Shaped in systolic and diastolic. EF 55%. Normal left atrium. Right atrium mildly enlarged. 3. Mildly elevated troponin and BNP secondary to submassive PE and right ventricular strain. Troponin mildly elevated 0.066 and 0.122. BNP 547. 4. Acute hypoxic respiratory failure secondary to bilateral large PE: Oxygen therapy to keep pulse ox 90%. Walking pulse oximetry before discharge tomorrow. 5. Hypertension: Continue home medication of amlodipine and lisinopril. Right forearm melanoma excision: Patient had melanoma excision by Dr. Mackay as per the patient. Discussed with Dr. Mackay and he does not recall. Medical record for biopsy report requested from PCP office. Laboratory Results 04/23/18 04:05: WBC 10.5, RBC 4.88, Hgb 15.5, Hct 45.7, MCV 93.6, MCH 31.8, MCHC 33.9, RDW 13.6, RDW Differential 45.4 H, Plt Count 182, MPV 9.8 04/23/18 04:05: Sodium 142, Potassium 4.3, Chloride 108 H, Carbon Dioxide 23.0, Anion Gap 11, BUN 17, Creatinine 1.09, Estim Creat Clear Calc 62.16, Est GFR (MDRD) Af Amer 86, Est GFR (MDRD) Non-Af 71, BUN/Creatinine Ratio 15.6, Glucose 121 H, Calcium 8.2 L Clinical Impression(s) from Imaging Studies Chest X-Ray 04/22/18 11:10 IMPRESSION: Borderline cardiomegaly. No acute abnormality is seen. Chest CTA 04/22/18 11:33 IMPRESSION: 1. Bilateral pulmonary emboli. 2. Heart size upper normal to borderline enlarged. There are coronary artery atherosclerotic calcifications. 3. Ill-defined airspace disease in the central perihilar left upper lobe. 4. Symmetric borderline fullness-hypertrophy of the bilateral adrenal glands. 5. [address] signs of acute cholecystitis. Code Visit Inpatient E&M: 23242 [facility] Hosp L3
--- NOTE | 2018-04-23 09:23 | NURSING ---
report called to PCU solid state tester
[2018-04-23] MEDS: Enoxaparin 100 MG/ML Syringe 90 MG SC ×2 (09:34→21:17)
[2018-04-23] MEDS: Lisinopril 5 MG Tablet PO (09:35)
[2018-04-23] MEDS: amLODIPine 10 MG Tablet PO (09:35)
--- NOTE | 2018-04-23 09:36 | NURSING ---
TO PCU 127 per WC, ICU staff in [facility]
--- NOTE | 2018-04-23 11:15 | CASEMGMT ---
SALVADOR DAWN INITIAL ASSESSMENT D/C PLAN: Home Face to Face with patient for initial transition planning/care coordination assessment. SALVADOR DAWN introduced self and role at [facility]. Pt sitting up on recliner chair, awake/alert/oriented. Willing to participate in assessment and all questions answered appropriately. Care providers, pharmacy, and demographics verified. PCP: Does not have PCP. States saw Dr Napier about 1 1/2 yrs ago and does not want to return. Given list of local PCP's. Encouraged to get established with PCP as soon as possible d/t will need follow-up care on discharge. Specialists: None Preferred [facility]acy: [facility]. Insurance: MCR A and B. No supplemental insurance and states has no prescription insurance. Informed pt that it is open enrollment at this time for healthcare insurance and prescription benefit and encouraged to talk to someone about the different options and plans available. Living Will/HPOA: Has both LW and HCPOA, who is Oumar Nobles, pt's son. Copy not found in e-chart. LNOK: Son Living Arrangements: Lives alone in one-story home. Entrance is through the basement with 12 steps to take to get to main floor. Transportation: Pt drives. States his son or a neighbor can assist with transportation if needed. DME: Denies using any DME and denies needs. Will need to follow for home oxygen needs on discharge. Currently on O2 @ 2l/m. Does not wear home O2. States no preference of DME company if he would need O2 on discharge. HHC/SNF: Pt denies every using HHC or been to a SNF. Denies needs and no needs identified. Pt wishes to return home on discharge. Pt denies having any needs or concerns at this time. Instructed to notify CM if he any questions/concerns/needs may arise. Pt voices understanding. CM to follow for any further discharge planning needs that may arise. Jf FONTANEZ RN, CM
--- NOTE | 2018-04-23 13:51 | CASEMGMT ---
Per Dr. Funez, pt to be sent home on anti-coagulant and Eliquis was sent to [facility] pharmacy. Per [employer], pt only has pharmacy discount program and co-pay will be $447 at this time. Krystal RITCHIE aware of pt lack of Rx coverage at this time, voices understanding and into speak with pt at this time. Dr. Funez aware of lewis at this time. Conor FRANCO CM
--- NOTE | 2018-04-23 16:20 | CASEMGMT ---
SW met with patient, introduced self as well as role at [facility]. Patient makes over $2,000 a month, but less than $30,000 a year. He would not qualify for any of the Medicare assistance programs. SW told him about needymeds.org and prescription hope. SW also gave patient information on Medicare open enrollment as well as information for [facility] Insurance Information Program to assist with signing up for Medicare D. CHAU will follow to see if assistance will be needed with d/c meds. Kymberly OWENS MSW
[2018-04-24] VITALS (8 sets, daily range): BP systolic 118–159; BP diastolic 69–80; PULSE 81–102; RESP 16–18; TEMP 36.4–36.5; O2SAT 92–96
[2018-04-24] MEDS: 0.9% Normal Saline 1,000 ML 75 ML IV (05:32)
--- NOTE | 2018-04-24 08:39 | DCINST_ITS ---
- Discharge Diagnoses Current Active Problems: Current Active and Chronic Problems Bilateral pulmonary embolism (Acute) Hypertension (Chronic) Acute respiratory failure with hypoxia (Acute) You will use the following diet at home:: Cardiac Your food should be the consistency of: Regular Discharge Activity: May Not Drive - for 5 days Call your doctor if you observe: Fever of 101 or Higher, Shortness of breath, Dizziness, Fainting spells, Swelling in the ankles, Chest pain, Increased palpitations (irregular heartbeat), Calf discomfort Allergies/Adverse Reactions: Allergies No Known Allergies Allergy (Verified 04/22/18 10:45) Medications to take at Discharge Amlodipine [Norvasc] 5 mg PO DAILY #0 tablet 04/24/18 Apixaban [Eliquis] 10 mg PO BID #60 tab 04/24/18 Lisinopril [Prinivil] 10 mg PO DAILY #30 tab 04/24/18 The following prescriptions were given: Lisinopril [Prinivil] 10 mg PO DAILY #30 tab Apixaban [Eliquis] 10 mg PO BID #60 tab Primary Care Physician: Madhuri Napier MD [[facility]] - Please follow up with your Primary Care Physician in: in 1-2 week Test Results: Test results from this visit will be discussed in further detail at your follow- up appointment, if applicable. Please Follow Up With: Yousif Deal DO When: in 3-4 weeks
--- NOTE | 2018-04-24 08:40 | DS.PCM_ITS ---
Discharge Date and Diagnosis - Problem List Patient Problems: Active and Suspected Problems Bilateral pulmonary embolism (Acute) Acute respiratory failure with hypoxia (Acute) Date of Admission: 04/22/18 Date of Discharge: 04/24/18 - Primary Discharge Diagnosis Active and Suspected Problems Bilateral pulmonary embolism (Acute) Acute respiratory failure with hypoxia (Acute) Bilateral large, submassive pulmonary emboli causing right ventricular dilatation with failure, severe TR with severe pulmonary hypertension consistent with acute cor pulmonale - Secondary Discharge Diagnosis Chronic Problems Hypertension (Chronic) Hospital Course and Treatment Summary of Care Provided: [] The patient is a 72 year old M with history of hypertension but no cardiopulmonary disease or thromboembolic disease came to ER with progressive worsening of shortness of breath on and off for 11/2 months. As per patient, in itially shortness of breath got better but never resolved but for last 2 days it got progressively worse so that he could not walk or climb stairs or laying flat. Significant dyspnea on exertion, orthopnea but denies PND. No chest pain/chest pressure. Patient is still short of breath, sitting upright. ED vitals shows sinus tachycardia, heart rate 110/min, respiratory rate 28/min, pulse ox 87% on room air and 96% on oxygen 2.5 L/min In ED, chest x-ray was done which shows no acute abnormality. EKG showed sinus tachycardia at 106 bpm, right axis deviation with T inversion in anterior and le ad III and aVF. Troponin and BNP elevated suggestive of right ventricular strain. CTPA showed bilateral submassive pulmonary artery emboli although it is not saddle embolus. 1. Bilateral large, submassive pulmonary emboli causing right ventricular dilatation with failure, severe TR with severe pulmonary hypertension consistent with acute cor pulmonale: Patient was admitted in ICU. Started on Lovenox 1 mg/kg body weight. Currently blood pressure is stable. Hypercoagulable labs have been ordered prior to the start of antithrombotic. Patient is transferred to PCU today. Discussed with sustainability engineer. Lovenox discontinued and started on Eliquis 2. Severe pulmonary artery hypertension with severe tricuspid regurgitation and severely dilated RV due to submassive PE: 2D echo was done and reviewed with the patient. Severely dilated RV with moderate global right ventricular systolic dysfunction. 4+ TR. RVSP 78 mmHg. Pulmonary artery is normal size with normal IVC. Interventricular septum is D Shaped in systolic and diastolic. EF 55%. Normal left atrium. Right atrium mildly enlarged. 3. Mildly elevated troponin and BNP secondary to submassive PE and right ventricular strain. Troponin mildly elevated 0.066 and 0.122. BNP 547. 4. Acute hypoxic respiratory failure (respiratory rate 28/min, pulse ox 87% on room air and 96% on oxygen 2.5 L/min) secondary to bilateral large PE, severe pulmonary hypertension, right ventricular failure with dilatation consistent with acute cor pulmonale: Oxygen therapy to keep pulse ox 90%. The patient was short of breath history of dyspnea on exertion when he came to ER. Walking pulse oximetry before discharge tomorrow. 5. Hypertension: Continue home medication of amlodipine and lisinopril. 6. Right arm melanoma excision: Patient had melanoma excision by Dr. Mackay as per the patient. Medical record and biopsy report reviewed from office. Dr. 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 Biopsy report further says tumor size greatest dimension 2.3 cm, no macroscopic satellite nodule. Maximum tumor thickness 14 mm, anatomic level IV, invades reticular dermis. Ulceration present. Peripheral margin and deep margin uninvolved by invasive melanoma. No microsatellitosis, lymph vascular invasion or perineural invasion identified. Lymph nodes not present in the specimen. Final diagnosis:, Nodular melanom with ulceration. The biopsy report and follow-up with the Dr. Rea was discussed with the patient In view of nodular melanoma and submassive PE, patient was advised to follow with Dr. Rea the materials planning manager and oncologist in 4-6 weeks. Discussed with the charge nurse to make an appointment. Discharge medication and follow-up instructions discussed with the patient. Patient will need walking pulse oximetry before discharge. Will need 2D echo after 3 months to follow-up on right ventricular strain with severe dilatation and pulmonary hypertension. This was communicated to the patient by me and Dr. Deal. Patient agreed to take Eliquis. Started on Eliquis inpatient. His prescription for Eliquis and lisinopril given. Total time spent, exact 35 minutes on discharge meds reconciliation, examination, review of imaging and blood test and discussion with the patient on follow-up instructions. Patient Problems: Active and Suspected Problems Bilateral pulmonary embolism (Acute) Acute respiratory failure with hypoxia (Acute) - Physical Exam General: Alert, Oriented x3, Cooperative HEENT: Atraumatic, PERRLA, EOMI, Normocephalic Neck: Supple, No JVD, Negative Carotid Bruits Lungs: Clear to auscultation, No rhonchi, No wheeze, No rales, Diminished - Air entry diminished bilateral lung base Cardiovascular: Regular rate, Regular Rhythm, Normal S1, Normal S2, No murmurs, - - P2 loud Abdomen: Bowel Sounds Present, Soft, Non Tender, Non-Distended Extremities: Capillary Refill Less than 3 Seconds, Edema - Mild bilateral peripheral edema Skin: No rashes, No breakdown Musculoskeletal: No Tenderness to Palpation of Joints or Extremities Neurological: Cranial nerves II-XII grossly intact, Deep Tendon Reflexes 2+/4 and Symmetrical, Neuro grossly intact, Motor Exam 5/5 strength throughout Psych/Mental Status: Normal Affect, Appropriate Vital Signs Temp Pulse Resp BP Pulse Ox 97.6 F L 89 18 159/69 H 92 04/24/18 03:11 04/24/18 07:01 04/24/18 03:11 04/24/18 03:11 04/24/18 06:48 Oxygen Flow Rate (L/min) 2 Oxygen Delivery Method Nasal Cannula Weight: 216 lb 14.958 oz Body Mass Index (BMI) 31.6 Intake and Output for Last 24 Hours 04/22/18 04/23/18 04/24/18 23:59 23:59 23:59 Intake Total 1567 / 1567 3170 / 3170 495 / 495 Output Total 775 / 775 600 / 600 Balance 792 / 792 2570 / 2570 495 / 495 Discharge Activity: May Not Drive - for 5 days Call your doctor if you observe: Fever of 101 or Higher, Shortness of breath, Dizziness, Fainting spells, Swelling in the ankles, Chest pain, Increased palpitations (irregular heartbeat), Calf discomfort Home Medications: Medications to take at Discharge Amlodipine [Norvasc] 5 mg PO DAILY #0 tablet 04/24/18 Apixaban [Eliquis] 10 mg PO BID #60 tab 04/24/18 Lisinopril [Prinivil] 10 mg PO DAILY #30 tab 04/24/18 Following Prescrptions Were Given to Patient: Lisinopril [Prinivil] 10 mg PO DAILY #30 tab Apixaban [Eliquis] 10 mg PO BID #60 tab Primary Care Physician: Madhuri Napier MD [[facility]] - Please follow up with your Primary Care Physician in: in 1-2 week Please Follow Up With: Yousif Deal, DO When: in 3-4 weeks Medical Necessity - Tobacco Use Smoking Status: Former smoker Tobacco Use: Cigarettes Meaningful Use Info Meaningful Use Diagnoses (Choose all that apply): VTE - VTE Anticoag overlap given w/in hospital stay or rx'd at dc?: Yes Pt receive overlap for 5 days?: Yes Code Visit Inpatient E&M: 38796 Disch Hosp
[2018-04-24] MEDS: amLODIPine 10 MG Tablet PO (08:59)
[2018-04-24] MEDS: Lisinopril 5 MG Tablet PO (08:59)
[2018-04-24] MEDS: APIXABAN 5 MG TABLET 10 MG PO (09:02)
--- NOTE | 2018-04-24 10:16 | PCM.PROGNOTE ---
Patient Problems: Active and Suspected Problems Bilateral pulmonary embolism (Acute) Acute respiratory failure with hypoxia (Acute) Subjective: The patient was seen and examined at the bedside this morning. Events from the last 24 hours have been reviewed. The patient is currently afebrile, hemodynamically stable and maintaining appropriate oxygen saturations on 1 L/min via nasal cannula. The patient denies any significant complaints. He reports no shortness of breath. Objective: The patient's most recent lab work, culture data and imaging studies have all been personally reviewed. Hypercoagulable panel is pending. Surface echocardiogram revealed a severely dilated RV with moderate global RV systolic dysfunction, severe tricuspid valve insufficiency and a pulmonary artery systolic pressure estimated to be 78 mmHg. - Physical Exam General: Alert, Oriented x3, Cooperative, No apparent distress, - - Sitting in bedside recliner eating breakfast. HEENT: Atraumatic, PERRLA, Normocephalic Oral: No Gingival or Mucosal Lesions/ Ulcerations Neck: Supple, No Nodes, Trachea Midline Lungs: Normal air movement, No rhonchi, No wheeze, No rales Cardiovascular: Regular rate, Regular Rhythm, Normal S1, Normal S2, No murmurs Abdomen: Bowel Sounds Present, Soft, Non Tender, Non-Distended, Obese Extremities: No clubbing, No cyanosis, No edema Skin: No breakdown Musculoskeletal: No Tenderness to Palpation of Joints or Extremities, No Muscle Wasting Lymphatic: No Cervical, Supraclavicular, or Inguinal Adenopathy Neurological: Cranial nerves II-XII grossly intact, Neuro grossly intact Psych/Mental Status: Alert and oriented to time, place, person, mood and affect Vital Signs Temp Pulse Resp BP Pulse Ox 36.5 C L 92 16 134/80 H 95 04/24/18 09:05 04/24/18 09:05 04/24/18 09:05 04/24/18 09:05 04/24/18 09:05 Oxygen Flow Rate (L/min) 1 Oxygen Delivery Method Nasal Cannula Weight: 216 lb 14.958 oz Body Mass Index (BMI) 31.6 Intake and Output for Last 24 Hours 04/22/18 04/23/18 04/24/18 23:59 23:59 23:59 Intake Total 1567 / 1567 3170 / 3170 495 / 495 Output Total 775 / 775 600 / 600 Balance 792 / 792 2570 / 2570 495 / 495 Labs (Last 48 Hours) 04/22/18 04/22/18 04/22/18 11:20 11:20 11:20 WBC 13.8 H RBC 5.33 Hgb 16.6 H Hct 50.8 MCV 95.3 H MCH 31.1 MCHC 32.7 RDW 13.7 RDW Differential 47.4 H Plt Count 178 MPV 10.1 Immature Gran % (Auto) 0.300 Neut % (Auto) 76.6 H Lymph % (Auto) 16.1 L [place] % (Auto) 5.9 Eos % (Auto) 0.9 Baso % (Auto) 0.2 Absolute Neuts (auto) 10.6 H Absolute Lymphs (auto) 2.22 Total Counted Not Reportable Protein C Antigen Prot C Funct Activity Antithrombin III Ag Func Antithrombin III Factor V Leiden Mutat Sodium 138 Potassium 4.4 Chloride 106 Carbon Dioxide 22.0 Anion Gap 10 BUN 21 H Creatinine 1.21 Estim Creat Clear Calc 56.00 Est GFR (MDRD) Af Amer 76 Est GFR (MDRD) Non-Af 63 BUN/Creatinine Ratio 17.4 Glucose 206 H Calcium 8.7 Troponin I 0.066 H B-Natriuretic Peptide 547.1 H Beta-2-GPI IgG Ab Beta-2-GPI IgA Ab Beta-2-GPI IgM Ab Anti-Cardiolipin IgG Ab Anti-Cardiolipin IgM Ab Factor II DNA Analysis Miscellaneous Test 04/22/18 04/22/18 04/22/18 13:06 13:06 14:40 WBC RBC Hgb Hct MCV MCH MCHC RDW RDW Differential Plt Count MPV Immature Gran % (Auto) Neut % (Auto) Lymph % (Auto) [place] % (Auto) Eos % (Auto) Baso % (Auto) Absolute Neuts (auto) Absolute Lymphs (auto) Total Counted Protein C Antigen Pending Prot C Funct Activity Pending Antithrombin III Ag Pending Func Antithrombin III Pending Factor V Leiden Mutat Pending Sodium Potassium Chloride Carbon Dioxide Anion Gap BUN Creatinine Estim Creat Clear Calc Est GFR (MDRD) Af Amer Est GFR (MDRD) Non-Af BUN/Creatinine Ratio Glucose Calcium Troponin I 0.122 H B-Natriuretic Peptide Beta-2-GPI IgG Ab Pending Beta-2-GPI IgA Ab Pending Beta-2-GPI IgM Ab Pending Anti-Cardiolipin IgG Ab Pending Anti-Cardiolipin IgM Ab Pending Factor II DNA Analysis Pending Miscellaneous Test Pending 04/23/18 04/23/18 04:05 04:05 WBC 10.5 RBC 4.88 Hgb 15.5 Hct 45.7 MCV 93.6 MCH 31.8 MCHC 33.9 RDW 13.6 RDW Differential 45.4 H Plt Count 182 MPV 9.8 Immature Gran % (Auto) Neut % (Auto) Lymph % (Auto) [place] % (Auto) Eos % (Auto) Baso % (Auto) Absolute Neuts (auto) Absolute Lymphs (auto) Total Counted Protein C Antigen Prot C Funct Activity Antithrombin III Ag Func Antithrombin III Factor V Leiden Mutat Sodium 142 Potassium 4.3 Chloride 108 H Carbon Dioxide 23.0 Anion Gap 11 BUN 17 Creatinine 1.09 Estim Creat Clear Calc 62.16 Est GFR (MDRD) Af Amer 86 Est GFR (MDRD) Non-Af 71 BUN/Creatinine Ratio 15.6 Glucose 121 H Calcium 8.2 L Troponin I B-Natriuretic Peptide Beta-2-GPI IgG Ab Beta-2-GPI IgA Ab Beta-2-GPI IgM Ab Anti-Cardiolipin IgG Ab Anti-Cardiolipin IgM Ab Factor II DNA Analysis Miscellaneous Test Clinical Impression(s) from Imaging Studies Chest X-Ray 04/22/18 11:10 IMPRESSION: Borderline cardiomegaly. No acute abnormality is seen. Electronically Signed: Alex Gan MD at 11:22 EST Tel [phone], Service support , Chest CTA 04/22/18 11:33 IMPRESSION: 1. Bilateral pulmonary emboli. 2. Heart size upper normal to borderline enlarged. There are coronary artery atherosclerotic calcifications. 3. Ill-defined airspace disease in the central perihilar left upper lobe. 4. Symmetric borderline fullness-hypertrophy of the bilateral adrenal glands. 5. [address] signs of acute cholecystitis. N.B. : The above information has been verbally conveyed by Vitaly Mims MD to Richard Kwok MD, on 04/22/2018 13:16:27 (ET). Electronically Signed: Vitaly Mims MD at 13:22 EST , Service support , Medical Necessity - Tobacco Use Smoking Status: Former smoker Tobacco Use: Cigarettes Assessment/Plan All Active Problems Bilateral pulmonary embolism (Acute) Acute respiratory failure with hypoxia (Acute) RECOMMENDATIONS: 1. Continue current anticoagulation regimen. 2. Wean supplemental oxygen as tolerated. 3. Await hypercoagulable workup. 4. Perform walking oximetry study prior to consideration for discharge from the hospital. 5. The patient should follow-up in the pulmonary medicine clinic within 2 weeks of his discharge from the hospital. IMPRESSIONS: 1. Submassive PE The patient presented to the hospital with worsening shortness of breath and lower extremity edema and was subsequently found to have extensive bilateral pulmonary emboli along with biochemical evidence of cardiac dysfunction including elevated troponin and BNP, suggestive of submassive pulmonary embolism. The patient remained hemodynamically stable, nonetheless. A follow-up echocardiogram did reveal evidence of RV systolic dysfunction and a pulmonary artery systolic pressure of 78 mmHg. Although this would be in keeping with the patient's clinical presentation of submassive PE. The exact etiology for the patient's venous thromboembolic disease is a bit unclear. He does report a history of melanoma, which was surgically resected. However, the patient did not have any formal follow-up with regards to his skin cancer. If possible, obtain records from the [facility] regarding the patient's melanoma history, as this may need to be followed up upon. Continue to wean supplemental oxygen to maintain saturations at or above 90%. Perform walking oximetry study prior to consideration for discharge from the hospital. Plan for discharge home with [facility]. 2. Personal history of hypertension and smokeless tobacco use Complicates care, management, recovery and prognosis. Continue home medications as indicated. Complete tobacco cessation is strongly advised. This note was generated with [employer] software. It may contain incorrect words, spelling, and punctuation that were not noted in checking the note before signing. Code Visit Inpatient E&M: 73872 Subs Hosp L2
--- NOTE | 2018-04-24 10:19 | PN_ITS ---
Patient Problems: Active and Suspected Problems Bilateral pulmonary embolism (Acute) Acute respiratory failure with hypoxia (Acute) Subjective: The patient was seen and examined at the bedside this morning. Events from the last 24 hours have been reviewed. The patient is currently afebrile, hemodynamically stable and maintaining appropriate oxygen saturations on 1 L/min via nasal cannula. The patient denies any significant complaints. He reports no shortness of breath. Objective: The patient's most recent lab work, culture data and imaging studies have all been personally reviewed. Hypercoagulable panel is pending. Surface echocardiogram revealed a severely dilated RV with moderate global RV systolic dysfunction, severe tricuspid valve insufficiency and a pulmonary artery systolic pressure estimated to be 78 mmHg. - Physical Exam General: Alert, Oriented x3, Cooperative, No apparent distress, - - Sitting in bedside recliner eating breakfast. HEENT: Atraumatic, PERRLA, Normocephalic Oral: No Gingival or Mucosal Lesions/ Ulcerations Neck: Supple, No Nodes, Trachea Midline Lungs: Normal air movement, No rhonchi, No wheeze, No rales Cardiovascular: Regular rate, Regular Rhythm, Normal S1, Normal S2, No murmurs Abdomen: Bowel Sounds Present, Soft, Non Tender, Non-Distended, Obese Extremities: No clubbing, No cyanosis, No edema Skin: No breakdown Musculoskeletal: No Tenderness to Palpation of Joints or Extremities, No Muscle Wasting Lymphatic: No Cervical, Supraclavicular, or Inguinal Adenopathy Neurological: Cranial nerves II-XII grossly intact, Neuro grossly intact Psych/Mental Status: Alert and oriented to time, place, person, mood and affect Vital Signs Temp Pulse Resp BP Pulse Ox 36.5 C L 92 16 134/80 H 95 04/24/18 09:05 04/24/18 09:05 04/24/18 09:05 04/24/18 09:05 04/24/18 09:05 Oxygen Flow Rate (L/min) 1 Oxygen Delivery Method Nasal Cannula Weight: 216 lb 14.958 oz Body Mass Index (BMI) 31.6 Intake and Output for Last 24 Hours 04/22/18 04/23/18 04/24/18 23:59 23:59 23:59 Intake Total 1567 / 1567 3170 / 3170 495 / 495 Output Total 775 / 775 600 / 600 Balance 792 / 792 2570 / 2570 495 / 495 Labs (Last 48 Hours) 04/22/18 04/22/18 04/22/18 11:20 11:20 11:20 WBC 13.8 H RBC 5.33 Hgb 16.6 H Hct 50.8 MCV 95.3 H MCH 31.1 MCHC 32.7 RDW 13.7 RDW Differential 47.4 H Plt Count 178 MPV 10.1 Immature Gran % (Auto) 0.300 Neut % (Auto) 76.6 H Lymph % (Auto) 16.1 L [place] % (Auto) 5.9 Eos % (Auto) 0.9 Baso % (Auto) 0.2 Absolute Neuts (auto) 10.6 H Absolute Lymphs (auto) 2.22 Total Counted Not Reportable Protein C Antigen Prot C Funct Activity Antithrombin III Ag Func Antithrombin III Factor V Leiden Mutat Sodium 138 Potassium 4.4 Chloride 106 Carbon Dioxide 22.0 Anion Gap 10 BUN 21 H Creatinine 1.21 Estim Creat Clear Calc 56.00 Est GFR (MDRD) Af Amer 76 Est GFR (MDRD) Non-Af 63 BUN/Creatinine Ratio 17.4 Glucose 206 H Calcium 8.7 Troponin I 0.066 H B-Natriuretic Peptide 547.1 H Beta-2-GPI IgG Ab Beta-2-GPI IgA Ab Beta-2-GPI IgM Ab Anti-Cardiolipin IgG Ab Anti-Cardiolipin IgM Ab Factor II DNA Analysis Miscellaneous Test 04/22/18 04/22/18 04/22/18 13:06 13:06 14:40 WBC RBC Hgb Hct MCV MCH MCHC RDW RDW Differential Plt Count MPV Immature Gran % (Auto) Neut % (Auto) Lymph % (Auto) [place] % (Auto) Eos % (Auto) Baso % (Auto) Absolute Neuts (auto) Absolute Lymphs (auto) Total Counted Protein C Antigen Pending Prot C Funct Activity Pending Antithrombin III Ag Pending Func Antithrombin III Pending Factor V Leiden Mutat Pending Sodium Potassium Chloride Carbon Dioxide Anion Gap BUN Creatinine Estim Creat Clear Calc Est GFR (MDRD) Af Amer Est GFR (MDRD) Non-Af BUN/Creatinine Ratio Glucose Calcium Troponin I 0.122 H B-Natriuretic Peptide Beta-2-GPI IgG Ab Pending Beta-2-GPI IgA Ab Pending Beta-2-GPI IgM Ab Pending Anti-Cardiolipin IgG Ab Pending Anti-Cardiolipin IgM Ab Pending Factor II DNA Analysis Pending Miscellaneous Test Pending 04/23/18 04/23/18 04:05 04:05 WBC 10.5 RBC 4.88 Hgb 15.5 Hct 45.7 MCV 93.6 MCH 31.8 MCHC 33.9 RDW 13.6 RDW Differential 45.4 H Plt Count 182 MPV 9.8 Immature Gran % (Auto) Neut % (Auto) Lymph % (Auto) [place] % (Auto) Eos % (Auto) Baso % (Auto) Absolute Neuts (auto) Absolute Lymphs (auto) Total Counted Protein C Antigen Prot C Funct Activity Antithrombin III Ag Func Antithrombin III Factor V Leiden Mutat Sodium 142 Potassium 4.3 Chloride 108 H Carbon Dioxide 23.0 Anion Gap 11 BUN 17 Creatinine 1.09 Estim Creat Clear Calc 62.16 Est GFR (MDRD) Af Amer 86 Est GFR (MDRD) Non-Af 71 BUN/Creatinine Ratio 15.6 Glucose 121 H Calcium 8.2 L Troponin I B-Natriuretic Peptide Beta-2-GPI IgG Ab Beta-2-GPI IgA Ab Beta-2-GPI IgM Ab Anti-Cardiolipin IgG Ab Anti-Cardiolipin IgM Ab Factor II DNA Analysis Miscellaneous Test Clinical Impression(s) from Imaging Studies Chest X-Ray 04/22/18 11:10 IMPRESSION: Borderline cardiomegaly. No acute abnormality is seen. Electronically Signed: Alex Gan MD at 11:22 EST Tel [phone], Service support , Chest CTA 04/22/18 11:33 IMPRESSION: 1. Bilateral pulmonary emboli. 2. Heart size upper normal to borderline enlarged. There are coronary artery atherosclerotic calcifications. 3. Ill-defined airspace disease in the central perihilar left upper lobe. 4. Symmetric borderline fullness-hypertrophy of the bilateral adrenal glands. 5. [address] signs of acute cholecystitis. N.B. : The above information has been verbally conveyed by Vitaly Mims MD to Richard Kwok MD, on 04/22/2018 13:16:27 (ET). Electronically Signed: Vitaly Mims MD at 13:22 EST , Service support , Medical Necessity - Tobacco Use Smoking Status: Former smoker Tobacco Use: Cigarettes Assessment/Plan All Active Problems Bilateral pulmonary embolism (Acute) Acute respiratory failure with hypoxia (Acute) RECOMMENDATIONS: 1. Continue current anticoagulation regimen. 2. Wean supplemental oxygen as tolerated. 3. Await hypercoagulable workup. 4. Perform walking oximetry study prior to consideration for discharge from the hospital. 5. The patient should follow-up in the pulmonary medicine clinic within 2 weeks of his discharge from the hospital. IMPRESSIONS: 1. Submassive PE The patient presented to the hospital with worsening shortness of breath and lower extremity edema and was subsequently found to have extensive bilateral pulmonary emboli along with biochemical evidence of cardiac dysfunction including elevated troponin and BNP, suggestive of submassive pulmonary embolism. The patient remained hemodynamically stable, nonetheless. A follow- up echocardiogram did reveal evidence of RV systolic dysfunction and a pulmonary artery systolic pressure of 78 mmHg. Although this would be in keeping with the patient's clinical presentation of submassive PE. The exact etiology for the patient's venous thromboembolic disease is a bit unclear. He does report a history of melanoma, which was surgically resected. However, the patient did not have any formal follow-up with regards to his skin cancer. If possible, obtain records from the [facility] regarding the patient's melanoma history, as this may need to be followed up upon. Continue to wean supplemental oxygen to maintain saturations at or above 90%. Perform walking oximetry study prior to consideration for discharge from the hospital. Plan for discharge home with [facility]. 2. Personal history of hypertension and smokeless tobacco use Complicates care, management, recovery and prognosis. Continue home medications as indicated. Complete tobacco cessation is strongly advised. This note was generated with [employer] software. It may contain incorrect words, spelling, and punctuation that were not noted in checking the note before signing. Code Visit Inpatient E&M: 74572 Subs Hosp L2
--- NOTE | 2018-04-24 11:40 | CASEMGMT ---
This RN CM to room at this time and pt is made aware of co-pay for Eliquis and is provided with 30 day free trial card at this time, voices understanding. Pt states that his daughter in law is a nurse and is working on getting him set up with PCP. Pt is aware of need to have PCP to utilize Rx assist that was provided by Krystal RITCHIE yesterday. Pt voices no further questions/concerns regarding prescription at this time. Per Ani FRANCO, pt does not qualify for home oxygen at this time. Pt is ready for disposition. Conor FRANCO CM
[2018-04-30 12:09] LABS: Protein C Antigen 90 % (60-150); Protein C, Functional 104 % (73-180)
[2018-04-30 16:56] LABS: Anti-Cardiolipin Ab, IgG, Qn < 9 GPL U/mL (0-14); Anti-Cardiolipin Ab, IgM, Qn < 9 MPL U/mL (0-12); Anti-Thrombin 3 AG, Immunol 94 % (72-124); Antithrombin 3 Function 108 % (75-135); Beta-2-Glycoprotein I IgA <9 (0-25); Beta-2-Glycoprotein I IgG <9 (0-20); Beta-2-Glycoprotein I IgM <9 (0-32)
== END 2018-04-24 15:24 | disposition home or self-care (01) | DRG 175 ==
LOC: ED 11:42 → ICU 13:21 → PCU 04-23 11:02 → ICU 04-24 09:39 → PCU 04-24 09:39
PROVIDERS: Admitting Provider Internal Medicine; Emergency Provider Emergency Medicine; Visit Provider Internal Medicine
DX: I26.09 Other pulmonary embolism with acute cor pulmonale (principal); J96.01 Acute respiratory failure with hypoxia; Z85.820 Personal history of malignant melanoma of skin; I07.1 Rheumatic tricuspid insufficiency; I10 Essential (primary) hypertension; I27.29 Other secondary pulmonary hypertension; R74.8 Abnormal levels of other serum enzymes; Z72.0 Tobacco use
CPT/HCPCS: 71045; 71275; 80048; 81240; 81241; 83880; 84484; 85025; 85027; 85300; 85301; 85302; 85303; 86146; 86147; 93005; 93306; 93970; 99285; J7030; Q9957; Q9967; A4216

== ENCOUNTER → 2018-05-13 10:44 | Outpatient (CLI) | payer MEDICARE, SELFPAY ==
[2018-05-02 09:27] VITALS: BMI 31.6
[2018-05-13 11:50] LABS: Anion Gap 6 (5-15); BUN 19 mg/dL (7-18); Calcium,Total 8.9 mg/dL (8.5-10.1); Chloride 107 mmol/L (98-107); Creatinine, Serum 0.95 mg/dL (0.70-1.30); EST Glomerular Filtration Rate 83 mL/min (>60); Est Glom Filt Rate - Afr Amer 100 mL/min (>60); Glucose 110 mg/dL (74-106); Potassium 3.9 mmol/L (3.5-5.1); Sodium Level 139 mmol/L (136-145)
== END ==
PROVIDERS: Family Provider Internal Medicine; PCP Internal Medicine; Referring Provider Nurse Practitioner Family; Visit Provider Nurse Practitioner Family
DX: I10 Essential (primary) hypertension (principal)
CPT/HCPCS: 36415; 80048

== ENCOUNTER → 2018-06-06 08:46 | Outpatient (CLI) | payer MEDICARE, SELFPAY ==
[2018-05-31 08:59] VITALS: BMI 31.6
--- NOTE | 2018-06-06 08:49 | ECHOD_ITS ---
Reason For Study: PULMONARY HYPERTENSION Procedure This was a 2D Doppler, Color Flow transthoracic echocardiogram. The exam was of fair technical quality due to body habitus. Exam performed in department. Left Ventricle Normal LV size. D shaped septum in systole and diastole. Left ventricular systolic function is normal. The estimated ejection fraction is 65 %. No evidence for diastolic dysfunction. No regional wall motion abnormalities noted. Right Ventricle Moderately dilated right ventricle. Moderate global right ventricular systolic dysfunction. Atria Normal left atrium. The right atrium is mildly enlarged. Late and faintly positive agitated saline contrast study for a right to left interatrial shunt c/w a small PFO vs. ASD. Mitral Valve There is no mitral annular calcification. Normal mitral valve. Trivial mitral valve insufficiency. Tricuspid Valve Normal tricuspid valve. Mild tricuspid valve insufficiency. Right ventricular systolic pressure estimated to be 58 mmHg. Aortic Valve Trisinus/trileaflet aortic valve. Mild focal aortic valve calcification. Pulmonic Valve The pulmonic valve is not well visualized. Mild (1+) pulmonic valve insufficiency. Great Vessels Normal aortic root. Pericardium/Pleural Trivial pericardial effusion. There are no echocardiographic indications of cardiac tamponade. Medication 22 gauge I.V. with prn adaptor inserted into right arm. Performed a rapid injection of agitated mix of 9 cc saline and 1cc air to assess for atrial septal defect. Definity deferred due to increased pulmonary pressure. MMode/2D Measurements & Calculations LVIDd: 3.4 cm IVSd: 1.7 cm Ao root diam: 3.3 cm LVIDs: 2.4 cm LVPWd: 1.2 cm RVDd: 5.0 cm FS: 29.6 % LAV(MOD-bp): 36.2 ml LVAd ap4: 26.8 cm2 SV(MOD-sp4): 48.0 ml LAV(MOD-bp) Indexed: 17.0 ml/m2 EDV(MOD-sp4): 72.6 ml LAV(MOD-sp2): 42.3 ml EDV(sp4-el): 75.3 ml LAV(MOD-sp4): 29.8 ml LVAs ap4: 14.0 cm2 ESV(MOD-sp4): 24.6 ml ESV(sp4-el): 23.9 ml EF(MOD-sp4): 66.2 % EF(sp4-el): 68.2 % SV(sp4-el): 51.4 ml LA A4 area: 13.5 cm2 LA dimension(2D): 4.0 cm RA A4 area: 21.1 cm2 Time Measurements MV dec time: 0.26 sec Doppler Measurements & Calculations MV E max breezy: 52.9 cm/sec Lat Peak E' Breezy: 6.3 cm/sec Med Peak E' Breezy: 4.4 cm/sec MV A max breezy: 87.6 cm/sec E/E' lat: 8.4 E/E' med: 12.0 MV E/A: 0.60 Ao V2 max: 132.0 cm/sec LV V1 max: 108.8 cm/sec PA V2 max: 81.0 cm/sec Ao max P.0 mmHg LV V1 max P.7 mmHg TR max breezy: 370.8 cm/sec TR max P.0 mmHg Interpretation Summary Left ventricular systolic function is normal. The estimated ejection fraction is 65 %. D shaped septum in systole and diastole. Moderately dilated right ventricle. Moderate global right ventricular systolic dysfunction. The right atrium is mildly enlarged. Trivial mitral valve insufficiency. Mild tricuspid valve insufficiency. Mild focal aortic valve calcification. Mild (1+) pulmonic valve insufficiency. Trivial pericardial effusion. There are no echocardiographic indications of cardiac tamponade. Right ventricular systolic pressure estimated to be 58 mmHg pulmonary hypertension. No evidence for diastolic dysfunction. Late and faintly positive agitated saline contrast study for a right to left interatrial shunt c/w a small PFO vs. ASD. Ordering Physician: Marlena Wilkerson Referring Physician: Marlena Wilkerson Performed By: Leidy Anegl RDCS
== END ==
PROVIDERS: Family Provider Internal Medicine; PCP Internal Medicine; Referring Provider Internal Medicine; Visit Provider Internal Medicine
DX: I26.99 Other pulmonary embolism without acute cor pulmonale (principal)
CPT/HCPCS: 93306; A4216